=== PATIENT | male | born 1990 | race Caucasian/White ===

== ENCOUNTER 2019-07-04 20:58 | Emergency (ER) | payer OTHER ==
[~2019-07-04] VITALS: Ht 180.3 cm; Wt 117.0 kg
[2019-07-04] MEDS ORDERED: VISTARIL 25 MG25 M1 PO (22:17)
[2019-07-04] MEDS ORDERED: MEDROLDOSEPACK PO (22:17)
[2019-07-04] MEDS ORDERED: PEPCID20 MG PO (22:17)
[2019-07-04 22:38] VITALS: BP 140/80
== END 2019-07-04 22:40 | disposition home or self-care (01) ==
LOC: M.ERS 20:58
DX: T78.40XA Allergy, unspecified, initial encounter (principal); I10 Essential (primary) hypertension